=== PATIENT | male | born 1970 | race Caucasian/White ===

== ENCOUNTER 2021-10-14 13:19 | Emergency (ER) | payer OTHER ==
[2021-10-14 14:25] LABS: HEMOGLOBIN 14.2 gm/dl (14.0-17.5); RED BLOOD COUNT 4.58 M/UL (4.20-5.50)
[2021-10-14 14:49] LABS: BUN/CREATININE RATIO 9 (0-10)
[2021-10-14] MEDS ORDERED: PREDNISONE20 MG PO (18:23)
[2021-10-14] MEDS ORDERED: IPRAT-ALBUT 0.5-3 ML INH (18:23)
== END 2021-10-14 18:45 | disposition home or self-care (01) ==
LOC: ER1 13:19
PROVIDERS: Family Medicine
DX: J44.9 Chronic obstructive pulmonary disease, unspecified (principal); Z88.0 Allergy status to penicillin; Z87.891 Personal history of nicotine dependence
CPT/HCPCS: 71045; 80048; 82550; 82553; 83605; 84484; 85025; 85379; 93005; 94664; 96374; 99285; J2930; Q9967

== ENCOUNTER → 2021-11-30 | Outpatient (CLI) | payer OTHER ==
[~2021-11-30] MED LIST: IPRAT-ALBUT 0.5-3 ML INH; PREDNISONE20 MG PO
== END ==
LOC: HEART 5 13:58
DX: J44.9 Chronic obstructive pulmonary disease, unspecified (principal)
CPT/HCPCS: 94060; 94729

== ENCOUNTER 2021-12-27 16:25 | Emergency (ER) | payer OTHER ==
[2021-12-27 16:55] LABS: HEMOGLOBIN 15.2 gm/dl (14.0-17.5); RED BLOOD COUNT 4.8 M/UL (4.20-5.50); WHITE BLOOD COUNT 8.6 K/UL (4.5-11.0)
[2021-12-27 17:21] LABS: BUN/CREATININE RATIO 12 (0-10)
[2021-12-27] MEDS ORDERED: CEFUROXIME500 MG PO (21:18)
[2021-12-27] MEDS ORDERED: MEDROL4 MG PO (21:18)
== END 2021-12-27 22:05 | disposition home or self-care (01) ==
LOC: ER1 16:25
PROVIDERS: Physician Assistant; Preventive Medicine Occupational Medicine
DX: J44.1 Chronic obstructive pulmonary disease with (acute) exacerbation (principal); Z20.822 Contact with and (suspected) exposure to COVID-19
CPT/HCPCS: 0240U; 36600; 70450; 71045; 80053; 80307; 82550; 82553; 82803; 84484; 85025; 85652; 86140; 93005; 94664; 96374; 96375; 99285; J0696; J2930; J7030

== ENCOUNTER → 2022-02-09 | Outpatient (CLI) | payer OTHER ==
[~2022-02-09] MED LIST changes: +CEFUROXIME500 MG PO; +MEDROL4 MG PO
== END ==
LOC: KOH-I 13:30
DX: J44.9 Chronic obstructive pulmonary disease, unspecified (principal)
CPT/HCPCS: 71250

== ENCOUNTER → 2022-03-17 | Emergency (ER) | payer OTHER | END | disposition left against medical advice (07) | LOC: ER1 21:00 | DX: Z53.21 Procedure and treatment not carried out due to patient leaving prior to being seen by health care provider (principal) ==